=== PATIENT | female | born 1990 | race Caucasian/White ===

== ENCOUNTER 2016-04-21 17:29 | Emergency (ER) | payer MEDICAID ==
[2016-04-21] MEDS ORDERED: diphenhydrAMINE 50 MG/ML SDV IVPUSH ONE (17:45)
[2016-04-21] MEDS ORDERED: LORazepam 2 MG/ML MDV IVPUSH ONE (17:45)
[2016-04-21] MEDS ORDERED: Metoclopramide 10 MG/2 ML SDV IVPUSH ONE (17:45)
[2016-04-21] MEDS ORDERED: Lidocaine 1% 50 ML MDV INJECT ONE (17:46)
--- NOTE | 2016-04-21 17:55 | EDM.PDOC ---
ED HPI Trauma - General Chief Complaint: Trauma Stated Complaint: [facility] Time Seen by Provider: 04/21/16 17:35 Source: Reports: Patient, EMS History Limitations: Reports: No limitations - History of Present Illness INITIAL COMMENTS - FREE TEXT/NARRATIVE: Patient is a 25-year-old female who was walking with her kids after sliding slipped on the snow/ice hitting the left side of her head on the ground. There was questionable loss of consciousness. States she had a pair of plastic glasses on her forehead when she fell causing a laceration to the left eyebrow/ forehead. She presents to the ED complaining of severe global head discomfort described as a throbbing sensation worsened with palpation. She has dizziness associated with this along with some nausea with no emesis. In addition she complains of stiff neck with midline tenderness proximal to the base of the skull. C. collar was placed for precautionary measures. Per patient tetanus is up-to-date. In addition metal hinge piece from glasses was protruding from laceration site. Occurred When: this afternoon Occurred Where: other Method of Injury: fall Severity: moderate Pain/Injury Location: Reports: head, face, neck Consciousness: Reports: brief (seconds). Denies: no loss of consciousness ( Questionable) Associated Symptoms: Reports: dizziness, headache, nausea/vomiting, neck pain. Denies: abdominal pain, chest pain, confusion, ringing in ears, seizures, slurred speech, trouble walking, vision changes Allergies/ADRs: Allergies No Known Allergies Allergy (Verified 04/21/16 17:39) Home Medications: Ambulatory Orders . [No Known Home Meds] 04/21/16 [Confirmed 04/21/16] Review of Systems - Review of Systems Review Of Systems: See Below Eyes: Denies: blurred vision, vision change Ears: Reports: dizziness Nose: Reports: no symptoms Mouth/Throat: Denies: lip swelling, tongue swelling, loose teeth, pain, throat swelling (Recently being treated for a strep throat, on last day of therapy with penicillin. Symptoms are improving), painful swallowing Respiratory: Denies: shortness of breath, cough, sputum Cardiovascular: Denies: chest pain GI/Abdominal: Reports: Nausea. Denies: Abdominal pain, Vomiting Musculoskeletal: Reports: neck pain. Denies: back pain Neurological: Reports: dizziness, headache. Denies: numbness, pre-existing deficit, tingling, difficulty walking, weakness ED EXAM, TRAUMA (MAJOR/MULTI) - Physical Exam Exam: See Below Exam Limited By: No limitations General Appearance: alert, WD/WN, anxious, mild distress Head: scalp tenderness, facial lacerations (Left eyebrow/temporal), facial swelling (Left orbit), facial tenderness Eyes: bilateral eye: EOMI, PERRL Ears: normal external exam, normal canal, hearing grossly normal, normal TMs Nose: normal inspection, normal mucousa, no blood Throat/Mouth: Normal inspection, Normal oropharynx, Normal voice, No airway compromise Neck: limited range of motion, spinous processes tender, stiff neck, tenderness , tender lateral, tender midline Cardiovascular: normal peripheral pulses, regular rate, rhythm Respiratory/Chest: no respiratory distress, lungs clear, normal breath sounds, no accessory muscle use, chest non-tender GI/Abdominal: normal bowel sounds, soft, non tender, no organomegaly Back: full range of motion, normal inspection, non-tender. 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 No discernible weakness to upper and lower extremities ) Skin: Normal color, Warm/dry ED TRAUMA PROCEDURES - Laceration/Wound Repair Left Forehead Lac/wound length in cm: 3 Appearance: subcutaneous Distal NVT: neuro & vascular intact Anesthetic type: local Local anesthesia - Lidocaine (Xylocaine): 1% plain Local anesthetic volume: 4cc Skin prep: saline, sterile drape Closed with: sutures Suture size: other (5) # of sutures: 9 Suture size: other (5) # of sutures: 1 Repaired with: vicryl Drain placement: No Sterile dressing applied: nurse Tetanus status addressed: Yes Complications: No Course - Vital Signs Last Recorded V/S: Last Vital Signs Temp 98.4 F 04/21/16 17:36 Pulse 75 04/21/16 17:36 Resp 20 04/21/16 17:36 BP 135/103 H 04/21/16 17:36 Pulse Ox 100 04/21/16 17:36 - Orders/Labs/Meds Meds: Medications Discontinued Medications Generic Name Dose Route Start Last Admin Trade Name Freq PRN Reason Stop Dose Admin Acetaminophen/Hydrocodone Bitart 1 tab 04/21/16 19:42 04/21/16 19:50 Robards 325-5 Mg PO 04/21/16 19:43 1 tab ONETIME ONE Administration Diphenhydramine HCl 25 mg 04/21/16 17:45 04/21/16 17:52 Benadryl IVPUSH 04/21/16 17:46 25 mg ONETIME ONE Administration Lidocaine HCl 50 ml 04/21/16 17:46 04/21/16 19:25 Xylocaine 1% INJECT 04/21/16 17:47 50 ml ONETIME ONE Administration Lorazepam 0.5 mg 04/21/16 17:45 04/21/16 17:53 Ativan IVPUSH 04/21/16 17:46 0.5 mg ONETIME ONE Administration Metoclopramide HCl 5 mg 04/21/16 17:45 04/21/16 17:50 Reglan IVPUSH 04/21/16 17:46 5 mg ONETIME ONE Administration - Re-Assessments/Exams Free Text/Narrative Re-Assessment/Exam: Patient elicited pain to the cervical spine with palpation. C-Collar placed prior to further examination. Small metal hinge piece from glasses embedded in wound. Will order CT of the head and cervical spine. I have also ordered for Ativan 0.5 mg IVP, Reglan 5 mg IVP , and Benadryl 25 mg IVP. Will attempt to get nausea and dizziness under control prior to addressing pain. Do not want to over sedate. 04/21/16 17:51 04/21/16 18:41 CT the cervical spine impression nothing acute is identified on CT study of the cervical spine. CT maxillofacial impression sinus findings as described above most likely representing chronic sinusitis as no air fluid level are seen. Incidental nasal septal deviation. CT head without contrast mucosal thickening within the left maxillary sinus which will be further described on CT maxillofacial study. Other portion of the noncontrast head CT on unremarkable. 04/21/16 19:32 Laceration to the forehead was closed with minimal difficulties. Site was cleaned by nursing staff prior with no obvious foreign objects present. I did not see any foreign objects prior to suturing laceration. Dressing applied per nursing staff. Will discharge patient home with instructions. She complains of headache and posterior neck discomfort. Worsened with having to sit still during laceration repair. Will order norco 5/ 325 1 tab PO prior to patient being discharged. Departure - Departure Time of Disposition: 19:36 Disposition: Home, Self-Care 01 Condition: good Clinical Impression: Minor closed head injury, Neck pain Laceration of face with complication Qualifiers: Encounter type: initial encounter Qualified Code(s): S01.81XA - Laceration without foreign body of other part of head, initial encounter Instructions: Head Injury, Adult, Facial Laceration, Laceration Care, Adult Referrals: PCP,Not In Area [Primary Care Provider] - Forms: ED Department Discharge, Return to Work/School Form Additional Instructions: As discussed sutures may be removed in 5-7 days. Keep area clean and dry. Cleanse twice daily, Pat dry with reapplication of bacitracin ointment. Apply ice to the affected area 4-6 times daily, 20 minutes in duration, do not apply ice directly on the skin. For pain take Tylenol and ibuprofen in alternating fashion. For severe pain take Robards one tab every [address] not drive this evening nor while taking the Robards. Return back to the ED if experience worse headache of your life, focal neurological deficits, uncontrolled vomiting, vision changes, increased redness to laceration site, increased swelling to laceration site, or purulent drainage from laceration. For nausea take zofran 4mg ODT every 6 to 8 hrs as needed.
--- NOTE | 2016-04-21 18:26 | CT ---
Head CT Technique: Multiple axial sections the brain were obtained. Intravenous contrast was not utilized. Comparison: No previous intracranial imaging is available. Findings: Ventricles along with basal cisterns and sulci over the convexities are within normal limits for the patient's age. No abnormal parenchymal densities are seen. No evidence of intracranial hemorrhage. No midline shift or mass effect is seen. Bone window settings were reviewed which shows the visualized mastoid sinuses and middle ear cavities to appear clear. Visualized paranasal sinuses shows moderate mucosal thickening within the left maxillary sinus. No acute calvarial abnormality is seen. Impression: 1. Mucosal thickening within the left maxillary sinus which will be further described on CT maxillofacial study. 2. Other portions of the noncontrast head CT study are unremarkable. Diagnostic code #2
--- NOTE | 2016-04-21 18:35 | CT ---
CT maxillofacial Technique: Multiple axial sections were obtained from above the frontal sinuses inferiorly through below the mandible. Reconstructed coronal and sagittal images were reviewed. Findings: Moderate mucosal thickening seen within the left maxillary sinus. Minimal mucosal thickening is noted within the right maxillary sinus. Minimal mucosal thickening seen within the ostia of both maxillary sinuses which is worse on the left side. Other sinuses are clear. Mild nasoseptal deviation is seen. Surrounding bony structures are intact. Impression: 1. Sinus findings as described above most likely representing chronic sinusitis as no air-fluid levels are seen. 2. Incidental nasoseptal deviation. Diagnostic code #3
--- NOTE | 2016-04-21 18:35 | CT ---
CT cervical spine Technique: Multiple axial sections were obtained from above C1 inferiorly to the bottom of T2. Reconstructed sagittal and coronal images were reviewed. Findings: Vertebral body heights and disc spaces are maintained. Vertebral bodies and posterior arches are intact with no fracture being seen. No bony central or bony neural foraminal stenosis is seen. No abnormal subluxation is seen on the reconstructed sagittal images. Minimal scoliosis is noted which is likely positional. Impression: 1. Incidental findings. Nothing acute is identified on CT study of the cervical spine. Diagnostic code #2
[2016-04-21] MEDS ORDERED: Acetaminophen/HYDROcodone 325-5 MG Tab PO ONE (19:42)
== END 2016-04-21 20:00 | disposition home or self-care (01) ==
LOC: JD.ED 17:29
PROC: 0HQ1XZZ Repair Face Skin, External Approach (ICD-10-PCS; principal; 2016-04-21)
DX: S01.81XA Laceration without foreign body of other part of head, initial encounter (principal); W00.0XXA Fall on same level due to ice and snow, initial encounter; Y93.9 Activity, unspecified; M54.2 Cervicalgia; R11.0 Nausea; R42 Dizziness and giddiness; R51 Headache
CPT/HCPCS: 12013; 12032; 70450; 70486; 72125; 96374; 96375; 99284; A9270; J1200; J2060; J2765